=== PATIENT | male | born 1940 | race Caucasian/White ===

== ENCOUNTER 2017-01-06 08:43 | Day surgery (SDC) | payer OTHER ==
[~2017-01-06] VITALS: Ht 175.3 cm; Wt 115.0 kg
[2017-01-06] VITALS (9 sets, daily range): BP systolic 119–143; BP diastolic 59–80; PULSE 62–80; RESP 14–22; Ht 175.3 cm; Wt 115.0 kg
[~2017-01-06 08:43] MED LIST: ASPI81TA3 PO; CARV6.25 PO; LAS20 PO; LEVO500T10 PO; OMEP40CA6 PO; POTA20TA15 PO
[2017-01-06] MEDS ORDERED: SOD CHLORIDE 0.9% 1,000 ML IV ONE (10:00)
[2017-01-06] MEDS ORDERED: CEFAZOLIN 2 GM/50 ML (PMX) 50 ML IVPB ONE (10:00)
[2017-01-06] MEDS ORDERED: BUPIVACAINE 0.25% (MPF) 30 ML INJ ONE (10:14)
[2017-01-06] MEDS ORDERED: LIDOCAINE 2% (MDV) 20 ML INJ ONE (10:14)
[2017-01-06] MEDS ORDERED: TRAZ50TA18 PO (10:29)
[2017-01-06] MEDS ORDERED: METF500T4 PO (10:31)
[2017-01-06] MEDS ORDERED: FURO40TA4 PO (10:31)
[2017-01-06] MEDS ORDERED: POTA10TA98 PO (10:33)
[2017-01-06] MEDS ORDERED: PROPOFOL 20 ML ONE ×2 (10:45→11:25)
[2017-01-06] MEDS ORDERED: FENTAnyl 50 MCG/ML VIAL ONE (10:46)
[2017-01-06] MEDS ORDERED: HYDROCODONE/APAP (5/325) TAB PO ONE (11:30)
[2017-01-06] MEDS ORDERED: LABETALOL HCL 20MG INJ IV PRN (12:00)
[2017-01-06] MEDS ORDERED: FENTAnyl 50 MCG/ML VIAL IV PRN ×3 (12:00)
[2017-01-06] MEDS ORDERED: ONDANSETRON 4 MG INJ IV PRN (12:00)
[2017-01-06] MEDS ORDERED: hydrALAzine 20 MG INJ IV PRN (12:00)
--- NOTE | 2017-01-06 14:51 | OPR ---
DATE OF OPERATION: 01/06/2017 INDICATION: This is a 76-year-old male with right leg mass. He requests surgical excision. Risks, alternatives, benefits, and personnel were discussed with the patient. Patient expressed understan ding and consents to the operation. PREOPERATIVE DIAGNOSIS: Right leg mass. POSTOPERATIVE DIAGNOSIS: Right leg mass. OPERATION PERFORMED: 1. Excision of right leg mass with a 7 cm size incision and 6 cm size mass. 2. Localized adjacent tissue transfer with the use of skin flaps with skin defect of 14 sq cm. SURGEON: Denzel Ledezma MD SPECIMEN: Right leg mass. COMPLICATIONS: None. ANESTHESIA: General. PROCEDURE: The patient was taken to the OR and prepped and draped in the usual sterile fashion. Kelsey rgical timeout was performed. IV antibiotics were given. Incision was made over the right lobe mas s transversely with a 15-blade. Dissection cautery was carried down to the mass and circumferential ly excised including the cyst cavity. Thorough irrigation was used to take out any kind of remnant contents. There was good hemostasis. Due to the large tissue defect, localized adjacent tissue tra nsfer with use of skin flaps was performed. Multilayer closure with interrupted 3-0 Vicryl and skin star. Local anesthesia was injected. Dry dressings were applied. Dictated By: DENZEL GALEANO/REBECA Conf#: [id number] DID#: [id number]
== END 2017-01-06 13:01 | disposition home or self-care (01) ==
LOC: SDS 08:43
PROVIDERS: ATTEND Surgery
DX: L72.0 Epidermal cyst (principal); I10 Essential (primary) hypertension
CPT/HCPCS: 14020; 82962; 88304; J3010